=== PATIENT | female | born 1980 | race Asian ===

== ENCOUNTER 2019-06-07 16:25 | Emergency (ER) | payer OTHER ==
[~2019-06-07] VITALS: Ht 152.4 cm; Wt 49.9 kg
[2019-06-07 17:43] LABS: BASOPHIL % 0.3 % (0-2); PLATELET COUNT 210 x10^3mcL (130-400); RED CELL DISTRIBUTION WIDTH 13.5 % (11.5-14.5)
[2019-06-07 18:00] LABS: CALCIUM 8.5 mg/dL (8.5-10.1); CARBON DIOXIDE 24.3 mmol/L (21-32); CHLORIDE SERUM 106 mmol/L (98-107); CREATININE SERUM 0.7 mg/dL (0.6-1.0); GFR1 > 60 mL/min; GLUCOSE SERUM 105 mg/dL (74-106); POTASSIUM SERUM 3.6 mmol/L (3.5-5.1); SODIUM SERUM 143 mmol/L (136-145)
[2019-06-07 18:05] LABS: ALBUMIN 3.9 g/dL (3.4-5.0); ALKALINE PHOSPHATASE 64 U/L (46-116); ALT/SGPT 17 U/L (14-59); AST/SGOT 23 U/L (15-37); BILIRUBIN TOTAL 0.26 mg/dL (0.20-1.00); TOTAL PROTEIN, SERUM 7.6 g/dL (6.4-8.2)
[2019-06-07 20:40] VITALS: BP 109/80
== END 2019-06-07 20:40 | disposition home or self-care (01) ==
LOC: ED 16:25
PROVIDERS: Emergency Medicine
DX: R07.89 Other chest pain (principal); R06.02 Shortness of breath; R05 Cough
CPT/HCPCS: 36415; 85378; Q0092